=== PATIENT | male | born 1960 | race Caucasian/White ===

== ENCOUNTER 2024-02-26 15:46 | Inpatient (IN) ==
[2024-02-26] MEDS ORDERED: Heparin 1,000 UNIT/ML 10 ml (10,000 UNITS) CATHLAB/DIALYSIS ONE (15:53)
[2024-02-26] MEDS ORDERED: Heparin 2 UNITS/ML 1000 mls 3,000 ML IV ONE (15:54)
[2024-02-26] MEDS ORDERED: nitroGLYCERIN DRIP 25,000 MCG/250 ML BTL ONE (15:54)
[2024-02-26] MEDS ORDERED: Lidocaine 1% MPF 5 ML VIAL ONE (15:54)
[2024-02-26] MEDS ORDERED: niCARdipine 0.1MG/ML IVPREMIX 20 MG/200 ML BAG IV ONE (15:54)
[2024-02-26] MEDS ORDERED: Morphine 4 MG/ML VIAL (1 ml) ONE (15:56)
[2024-02-26] MEDS ORDERED: Midazolam 5 mg/5 ml VIAL 1 mg/ml 5 ml VIAL (5 mg) ONE ×2 (15:57→17:43)
[2024-02-26] MEDS ORDERED: fentaNYL 250 mcg/5 ml 50 MCG/ML 5 ml VIAL (250 MCG) ONE ×2 (15:57→17:43)
[2024-02-26] MEDS ORDERED: Iohexol 350 (CONTRAST) 200 ML MDV IV ONE (15:57)
[2024-02-26 16:03] LABS: ABS Basophils 0.1 10^3/uL (0.0-0.1); ABS Eosinophils 0.2 10^3/uL (0.0-0.5); ABS Lymphocytes 3.5 10^3/uL (1.0-4.8); ABS Monocytes 0.7 10^3/uL (0.0-1.1); ABS Neutrophils 7.2 10^3/uL (1.5-7.6); Eosinophil % 1.8 %; Hematocrit 46.8 % (38-53); Hemoglobin 15.9 g/dL (13.2-16.3); Lymphocyte % 29.7 %; Mean Corpuscular Hemoglobin 30.2 pg (27-33); Mean Corpuscular Volume 88.9 fL (80-97); Mean Platelet Volume 7.9 fL (7.5-11.2); Platelet Count 271 10^3/uL (150-450); Red Blood Count 5.27 10^6/uL (4.06-5.63); Red Cell Distribution Width 13.6 % (12-17); White Blood Count 11.7 10^3/uL (3.6-10.2)
[2024-02-26] MEDS: Morphine 4 MG/ML VIAL (1 ml) IV ONE (16:03)
[2024-02-26] MEDS: Heparin - STEMI 5,000 UNITS/ML 1 ml VIAL IV ONE (16:03)
[2024-02-26] MEDS ORDERED: Amiodarone 150 mg IVPREMIX 150 MG/100 ML BAG IV ONE (16:25)
[2024-02-26 16:29] LABS: Activated Partial Thrombo Time 27.1 seconds (26.0-38.0); INR 1.07 (0.85-1.14)
[2024-02-26] MEDS ORDERED: Amiodarone 360 MG IVPREMIX 360 MG/200 ML BAG IV ONE (16:40)
[2024-02-26 16:41] LABS: Albumin 4.2 g/dL (3.2-5.2); Albumin/Globulin Ratio 1.7 (1-3); Calcium 11.4 mg/dL (8.6-10.3); Creatinine, Serum 1.26 mg/dL (0.67-1.17); Globulin 2.5 g/dL (2-4); Magnesium 1.8 mg/dL (1.9-2.7); Potassium 3.7 mmol/L (3.5-5.0); Total Protein 6.7 g/dL (6.4-8.9); eGFR CKD-EPI 64.1 (>60)
[2024-02-26] MEDS: Amiodarone 360 MG IVPREMIX 360 MG/200 ML BAG IV SCH (16:46)
[2024-02-26] MEDS ORDERED: Eptifibatide IV (Load dose) 2 MG/ML 10 ml VIAL ONE ×2 (16:47)
[2024-02-26] MEDS ORDERED: Magnesium Sulfate 2 gm BAG 2 GM/50 ML BAG ONE (17:01)
[2024-02-26] MEDS ORDERED: Iohexol 350 (CONTRAST) 100 ML PAK IV ONE (17:03)
[2024-02-26] MEDS: Potassium Chlor 20 meq TAB.ER PO ONE (21:02)
[2024-02-26] MEDS: Ondansetron 4 mg VIAL 2 MG/ML 2 ml VIAL IV PRN (21:03)
[2024-02-26] MEDS: Calcium Carb (TUMS) 500 mg CHEW TAB PO ONE (21:42)
[2024-02-27] MEDS: Empagliflozin 25 MG TAB PO SCH (07:55)
[2024-02-27] MEDS: Sulfur Hexaflouride MICROSPHR 25 MG VIAL IV PRN (08:37)
[2024-02-27 12:36] LABS: ABS Basophils 0.1 10^3/uL (0.0-0.1); ABS Eosinophils 0.1 10^3/uL (0.0-0.5); ABS Lymphocytes 1.8 10^3/uL (1.0-4.8); ABS Monocytes 1.4 10^3/uL (0.0-1.1); ABS Neutrophils 13.8 10^3/uL (1.5-7.6); ABS Nucleated RBC 0.01 10^3/ul; Eosinophil % 0.4 %; Hematocrit 46.1 % (38-53); Hemoglobin 15.6 g/dL (13.2-16.3); Lymphocyte % 10.3 %; Mean Corpuscular Hemoglobin 29.9 pg (27-33); Mean Corpuscular Hgb Conc 33.9 g/dL (31-36); Mean Corpuscular Volume 88.4 fL (80-97); Nucleated Red Blood Cells % 0.1 %/100WBC (0.0-0.8); Platelet Count 247 10^3/uL (150-450); Red Blood Count 5.22 10^6/uL (4.06-5.63); Red Cell Distribution Width 13.6 % (12-17); White Blood Count 17.1 10^3/uL (3.6-10.2)
[2024-02-27] MEDS: Isosorbide Mononit ER 30mg TAB PO SCH (12:41)
[2024-02-27 13:11] LABS: Albumin 4.1 g/dL (3.2-5.2); Albumin/Globulin Ratio 1.6 (1-3); Calcium 11.2 mg/dL (8.6-10.3); Creatinine, Serum 0.94 mg/dL (0.67-1.17); Globulin 2.5 g/dL (2-4); HDL Cholesterol 34.8 mg/dL; Potassium 4.2 mmol/L (3.5-5.0); Total Bilirubin 1.5 mg/dL (0.2-1.0); Total Protein 6.6 g/dL (6.4-8.9); eGFR CKD-EPI 91.1 (>60)
[2024-02-27] MEDS: Al Hydrox/Mg Hydrox/Simet LIQ 30 ML UDC PO PRN (22:21)
[2024-02-28] MEDS ORDERED: Norepinephrine 4 MG/250mL D5W 4,000 MCG/250 ML BAG IV SCH (02:00)
[2024-02-28] MEDS: Lactated Ringers 1000 ml BAG 250 ML IV ONE (02:08)
[2024-02-28] MEDS: Furosemide 40 mg/4 ml IV VIAL IV ONE (03:11)
[2024-02-28] MEDS: CMCS: Ranolazine 500 mg TAB ER (NF) PO SCH (08:44)
[2024-02-28] MEDS ORDERED: Dextrose 50% Syringe 50 ml 25 GM/50 ML SYRINGE IV PUSH PRN (09:05)
[2024-02-28 09:33] LABS: ABS Basophils 0.1 10^3/uL (0.0-0.1); ABS Eosinophils 0.1 10^3/uL (0.0-0.5); ABS Lymphocytes 1.8 10^3/uL (1.0-4.8); ABS Monocytes 1.2 10^3/uL (0.0-1.1); ABS Neutrophils 10.4 10^3/uL (1.5-7.6); Eosinophil % 0.6 %; Hematocrit 44.5 % (38-53); Hemoglobin 15.3 g/dL (13.2-16.3); Lymphocyte % 13.1 %; Mean Corpuscular Hemoglobin 30.5 pg (27-33); Mean Corpuscular Hgb Conc 34.3 g/dL (31-36); Mean Platelet Volume 7.9 fL (7.5-11.2); Platelet Count 233 10^3/uL (150-450); Red Cell Distribution Width 13.6 % (12-17); White Blood Count 13.6 10^3/uL (3.6-10.2)
[2024-02-28 10:24] LABS: Albumin 4.1 g/dL (3.2-5.2); Albumin/Globulin Ratio 1.7 (1-3); Calcium 10.5 mg/dL (8.6-10.3); Creatinine, Serum 1.11 mg/dL (0.67-1.17); Globulin 2.4 g/dL (2-4); Magnesium 2.2 mg/dL (1.9-2.7); Potassium 4.1 mmol/L (3.5-5.0); Total Bilirubin 1.6 mg/dL (0.2-1.0); Total Protein 6.5 g/dL (6.4-8.9); eGFR CKD-EPI 74.6 (>60)
[2024-02-28] MEDS: Lactated Ringers 1000 ml BAG 500 ML IV ONE (11:51)
[2024-02-28] MEDS: Lactated Ringers 1000 ml BAG 1,000 ML IV ONE (11:52)
[2024-02-28] MEDS: Enoxaparin 40 MG/0.4 ML SYR SUBCUT SCH (16:47)
[2024-02-29 06:17] LABS: Calcium 9.8 mg/dL (8.6-10.3); Creatinine, Serum 1.08 mg/dL (0.67-1.17); Magnesium 2.1 mg/dL (1.9-2.7); eGFR CKD-EPI 77.1 (>60)
[2024-02-29 06:27] LABS: Hematocrit 43.4 % (38-53); Hemoglobin 14.5 g/dL (13.2-16.3); Mean Corpuscular Hemoglobin 30.9 pg (27-33); Mean Corpuscular Hgb Conc 33.4 g/dL (31-36); Mean Corpuscular Volume 92.6 fL (80-97); Platelet Count 199 10^3/uL (150-450); Red Blood Count 4.68 10^6/uL (4.06-5.63); Red Cell Distribution Width 13.7 % (12-17); White Blood Count 8.4 10^3/uL (3.6-10.2)
[2024-02-29 10:22] VITALS: BP 89/52
== END 2024-02-29 10:56 | disposition home or self-care (01) | DRG 174 ==
LOC: ED 15:46 → EDHOLD 15:50 → AA 16:13 → ICU 18:31 → MEDTELE 02-28 17:29
PROVIDERS: ADMIT Internal Medicine